=== PATIENT | female | born 1970 | race Caucasian/White ===

== ENCOUNTER → 2016-08-03 | Outpatient (CLI) | payer BC | END | disposition home or self-care (01) | LOC: CDC 09:22 | DX: Z01.810 Encounter for preprocedural cardiovascular examination (principal) | CPT/HCPCS: 93000 ==

== ENCOUNTER 2016-09-08 07:56 | Day surgery (SDC) | payer BC ==
[~2016-09-08] VITALS: Ht 170.2 cm; Wt 133.0 kg
[~2016-09-08 07:56] MED LIST: HYDROCHLOROTHIA25 MG PO; LEVO-T125 MCG PO; METAMUCIL0.52 GM PO; WOMEN'S DAILY1 EAC4 PO
[2016-09-08 08:27] VITALS: BP 171/83
[2016-09-08] MEDS ORDERED: ENDOCET 5-3251 EACH PO (10:51)
[2016-09-08] MEDS ORDERED: IBUPROFEN800 MG PO (10:51)
[2016-09-08 12:04] VITALS: BP 129/60
[2016-09-08 13:03] VITALS: BP 134/70
[2016-09-08 14:00] VITALS: BP 138/85
== END 2016-09-08 14:15 | disposition home or self-care (01) ==
LOC: SDC 07:56
PROC: 0UT9FZZ Resection of Uterus, Via Natural or Artificial Opening With Percutaneous Endoscopic Assistance (ICD-10-PCS; principal; 2016-09-08)
PROC: 0UT7FZZ Resection of Bilateral Fallopian Tubes, Via Natural or Artificial Opening With Percutaneous Endoscopic Assistance (ICD-10-PCS; principal; 2016-09-08)
PROC: 0UTC8ZZ Resection of Cervix, Via Natural or Artificial Opening Endoscopic (ICD-10-PCS; principal; 2016-09-08)
DX: N92.0 Excessive and frequent menstruation with regular cycle (principal); N94.6 Dysmenorrhea, unspecified; D25.1 Intramural leiomyoma of uterus; D25.2 Subserosal leiomyoma of uterus; N80.0 Endometriosis of uterus; N72 Inflammatory disease of cervix uteri; E66.01 Morbid (severe) obesity due to excess calories; Z68.42 Body mass index [BMI] 45.0-49.9, adult; K66.0 Peritoneal adhesions (postprocedural) (postinfection); I10 Essential (primary) hypertension; E78.5 Hyperlipidemia, unspecified; E03.9 Hypothyroidism, unspecified; Z88.0 Allergy status to penicillin; Z82.49 Family history of ischemic heart disease and other diseases of the circulatory system; Z83.3 Family history of diabetes mellitus; Z80.3 Family history of malignant neoplasm of breast
CPT/HCPCS: 88307; J0131; J0330; J1100; J1170; J1580; J1885; J2250; J2405; J2710; J2765; J3010; J7050